=== PATIENT | female | born 1990 | race Caucasian/White ===

== ENCOUNTER 2024-03-09 18:22 | Inpatient (IN) | payer OTHER, SELFPAY ==
[2024-03-09 20:53] VITALS: BMI 23.3
[2024-03-09] MEDS: hydrOXYzine HCL 25 MG TABLET PO (21:31)
[2024-03-09] MEDS: Mirtazapine 15 MG TABLET PO (22:35)
[2024-03-09] MEDS: Acetaminophen 325 MG TABLET 650 MG PO (22:37)
--- NOTE | 2024-03-09 23:33 | PC.ADMIT ---
Addendum entered by Susan Reilly RN 03/10/24 05:32: Amended to add: patient tox screen was positive for Methadone, cocaine, fentanyl, marijuana and benzodiazepines. Original Note: 33 year old female with acute psychosis, comes to [facility] from [facility]. Patient has a history of poly HIRA, with an approximately 12 year dependance on IV heroin; she has been receiving methadone for same. Patient is alert and oriented to self. Patient is highly paranoid, requesting a chiropractic physician and questioning whether staff were working for the state. Patient is very demanding and impatient with staff, but does not raise voice or become physical, and is compliant with medication regimen.
[2024-03-09] MEDS: risperiDONE 0.5 MG TABLET PO (23:55)
[2024-03-10] VITALS: BP 142/86; PULSE 87; RESP 17; TEMP 37.6; O2SAT 98
[2024-03-10] MEDS: Nicotine Polacrilex 2 MG GUM 4 MG BUCCAL ×3 (00:26→10:41)
[2024-03-10 00:38] VITALS: BP 119/83
[2024-03-10] MEDS: cloNIDine HCL 0.1 MG TABLET PO ×2 (00:38→08:51)
[2024-03-10] MEDS: traZODone HCL 50 MG TABLET PO (01:00)
[2024-03-10 08:00] VITALS: BP 102/65; PULSE 97; RESP 18; TEMP 36.9; O2SAT 97
--- NOTE | 2024-03-10 08:29 | HE.PHANOTE ---
RE: methadone Received paperwork from [facility] with last dose of 90mg on 03/09/24 @[id number]
[2024-03-10] MEDS: methADONE HCl 20 MG/2 ML ORAL.CONC 90 MG PO (08:45)
[2024-03-10] MEDS: hydrOXYzine HCL 25 MG TABLET PO (08:49)
[2024-03-10] MEDS: Acetaminophen 325 MG TABLET 650 MG PO ×2 (08:49→21:40)
[2024-03-10 08:51] VITALS: BP 102/65
[2024-03-10] MEDS: risperiDONE 0.5 MG TABLET PO ×2 (08:51→22:54)
--- NOTE | 2024-03-10 10:30 | HO.PSYADMNOT ---
HPI Date of Service: 03/10/24 Chief Complaint: behaviroal Sources of Information: patient interviewed, chart reviewed and crisis/core team assessment reviewed (transfer from another hospital - cytogenetics laboratory manager oriana) HPI Subjective Notes: Conditional Voluntary Healthcare Proxy: No Guardianship: No Medical Problems Affecting Mental Status: No Narrative: 33yo WF presents for admission after reported decompensation was afraid she would kill herself if she kept using heroin- She is using heroin on top of methadone which she has been on for the past 1 year- Very vague about psychotic symptoms hearing and seeing things- doesn't know what else she took - was drinking and using crack- Says she has been trying to ween off heroin on her own and it isn't work - Crisis report said she showed up to police station confused and Patient is highly paranoid, requesting a refrigeration service technician and questioning whether staff were working for the state. This was on transfer to [facility] - she is now not psychotic appearing/denies si/hi/psychosis- Past Psychiatric History: hx prior admissions no hx of SA! Medical Evaluation Reviewed: Hospitalist Oriana Pending Pt co urinary sys and wants a chemistry intern check up [facility] Narrative: denies medical problems outside of possible chemistry intern/urinary Hep C - untreated NKDA Narrative: pt co high wbc/cr from prior hospital and would like to have check for PID and uti Family History: [place] Social History: using IV heroin and crack Substance History: hx of IV heroin for 12 years, now on methadone, also uses crack, utox pos for mj, joe and fentanyl had 6 month residential 2019 where she was put on vyvanse with good effect- unclear how long she was able to stay sober Trauma History: yes- pt reports this Diagnostics Vital Signs (24Hr): Vital Signs - 24 hr 03/10/24 00:00 03/10/24 00:38 03/10/24 08:51 Temperature 99.7 F Pulse Rate 87 Respiratory Rate 17 Blood Pressure 142/86 H 119/83 102/65 Pulse Oximetry 98 Oxygen Delivery Method Room Air BMI result Body Mass Index 23.3 Labs Labs: reviewed labs from [facility] WBC was only 5.14; creatinine was 0.9 well wnl , lfts and mg all wnl hcgnegative urine was positive for wbc and rbc trace bacteria- didn't look like a clean catch- EKG EKG: reviewed (NSR with sinus arrhythmia , qtc 454) Meds/Allergies Meds Home Medications ?Medication ?Instructions ?Recorded ?Confirmed ?Type alprazolam 1 mg tablet PO 2XD 03/09/24 History dextroamphetamine-amphetamine 30 1 tab PO BID 03/09/24 03/09/24 History mg tablet fluoxetine 20 mg capsule 20 mg PO DAILY 03/09/24 03/09/24 History mirtazapine 15 mg tablet 15 mg PO BEDTIME 03/09/24 03/09/24 History methadone 10 mg/mL oral 90 mg PO DAILY 03/10/24 03/10/24 History concentrate (Methadose) Narrative: Pt reports she is also on fluoxetine 10-20mg... I did confirm through UTILIZATION MANAGEMENT UM NURSE that she got 30 days of alprazolam 1mg bid 02/11 and same for adderall 30mg bid and has been getting these consistenlty from a provider in [facility] Allergies Allergies Allergy/AdvReac Type Severity Reaction Status Date / Time environmental allergies AdvReac Intermediate Cough Verified 03/09/24 20:58 Mental Status Exam Mental Status Exam Patient Appearance: Disheveled and Unkempt Patient Orientation: Person, Place, Time and Situation Level of Consciousness: Awake, Restless and Alert Patient Behavior: Appropriate and Cooperative Mood Description: Apprehensive Affect Description: Constricted Patient Cognition Impaired: No Ability to Follow Directions: Fair Speech Pattern: Clear Hallucinations: None (denies currently but admitted while on drugs had them) Delusions: Not Present Thought Process: Intact Thought Content: positive for Goal Oriented Depressive Symptoms: Significant Weight Loss (?) Abnormal Motor Activity Signs and Symptoms: Restlessness Judgement: Fair Assessment & Plan Assessment & Plan (1) Opiate abuse, continuous: Status: Acute Code(s): F11.10 - Opioid abuse, uncomplicated (2) Crack cocaine use: Status: Acute Code(s): F14.90 - Cocaine use, unspecified, uncomplicated Assessment and Plan: does not seem to be psychotic/paranoid today though focused on getting her adhd med stimulant- adderall or would prefer vyvanse holding these till Monday for decision given supposed psychosis yesterday (3) Alcohol abuse: Status: Acute Code(s): F10.10 - Alcohol abuse, uncomplicated Assessment and Plan: follow vitals - Plan unclear if any psychiatric disorder outside of substance use- though likely ptsd but not sure there is psychotic disorder other than what might get from intoxication with multiple drugs Best to be referred to longer term residential like she had in 2019 . Patient educated on: diagnosis and medication risk/benefits Informed Consent: further education needed Reason for continued inpatient stay Substantial Risk for: harm to self, inability to function and rapid decompensation Statement Statement: I have reviewed the history and physical and performed a pertinent examination on my patient. No changes have occurred unless specified. If the History and Physical was not performed prior to admission, the Hospitalist's service will be consulted for completing the admission physical. Time Spent With Patient Time: Total time managing care of this patient today ____ minutes.
[2024-03-10] MEDS: ALPRAZolam 0.5 MG TABLET 1 MG PO (10:53)
--- NOTE | 2024-03-10 13:41 | P.CONHOSP_ITS ---
History of Present Illness Data of Consult Service Date: 03/10/24 Requesting physician: Yifan Mullins Primary Care Provider: Unknown Physician HPI Reason for consult: medical h&P 33 year old female with history of OUD, alcohol use disorder, who is a current 2ppd smoker admitted for psychiatry from [facility] with consult placed to hospitalist service for medical H&P. Pt reports last IV heroin use was 2 days ago. Agreeable to HIV and hep b/c screening. Reports drinking 2nips to a gallon of alcohol daily. Last drink 2 days ago. Had been experiencing shakes, headaches, sweats but these have improved. No seizures. She takes alprazolam TID. No other complaints at this time except for feeling tired. Review of Systems Review of Systems: General: No fevers, malaise, unintentional weight loss HEENT: No blurred vision, diplopia. No sore throat, nasal congestion, rhinorrhea, sinus pain, ear pain Cardiovascular: No chest pain, palpitations, or leg edema Respiratory: No shortness of breath, wheezing, cough GI: No abdominal pain, nausea, vomiting, diarrhea, constipation, melena, hematochezia : No dysuria, hematuria, increased urinary frequency, decreased urinary output MSK: No myalgia, back pain Neuro: No headaches, weakness, paresthesias. +tremors Skin: No rashes or lesions PMFSH Medical History Alcohol abuse Crack cocaine use Intravenous drug abuse Alcohol use disorder Opiate abuse, continuous Social History Household Members: Significant Other and Unknown / Unable to assess Housing: Homeless Do you presently have visiting nurse or other home services: No Patient Tobacco Use Status: Current everyday Tobacco user Tobacco use type: Cigarette Cigarette Packs Per Day: 1 Cigarettes Per Day: 20.0 Smoked in Last 30 Days: Yes e-Cigarette/Vaping Use: Never Used Frequency of e-Cigarette/Vaping Use: Daily Patient Interested in Nicotine Replacement: Yes Patient Given Instructions on How to Stop Smoking: Yes Date Education Initiated: 03/09/24 Second Hand Smoke Exposure: Yes Use of substances other than those prescribed or required for medical reasons: Yes Substance Use Type: Crack/Cocaine, Marijuana and Other Substance Use Type Other:: Former IV heroin user; no manager intermediate period of sobriety Substance Use Frequency: Chronic Longstanding Last Used Substance: Unknown Last Used Substance Other:: Fentanyl Currently Displaying Signs/Symptoms of Drug Intoxication Withdrawal: No Any prior treatment program specific to substance use: Yes (Patient is currently under the care of a methadone clinic) Advance Directives: No Advance Directives Information Provided: No Do you have thoughts of harming others: None Do you have a plan to hurt others: No Plan Recently lost weight without trying: Unsure Nutrition Risks: No Nutritional Risk Patient : No : No Poor oral hygiene: No Meds Allergies Allergy/AdvReac Type Severity Reaction Status Date / Time environmental allergies AdvReac Intermediate Cough Verified 03/09/24 20:58 Active Medications: Current Medications Acetaminophen (Acetaminophen 325 Mg Tablet) 650 mg PO Q6H PRN PRN Reason: Headache/Pain Mild Scale (1-3) Last Admin: 03/10/24 08:49 Dose: 650 mg Al Hydroxide/Mg Hydroxide (Magnesium Hydrox/Alum Hydrox 30 Ml Oral.Susp) 30 ml PO Q6H PRN PRN Reason: Heartburn/Nausea Alprazolam (Alprazolam 0.5 Mg Tablet) 0.5 mg PO TID KENNETH Clonidine HCl (Clonidine Hcl 0.1 Mg Tablet) 0.1 mg PO TID PRN; Protocol PRN Reason: anxiety/restlessness Last Admin: 03/10/24 08:51 Dose: 0.1 mg Hydroxyzine HCl (Hydroxyzine Hcl 25 Mg Tablet) 25 mg PO Q6H PRN PRN Reason: Anxiety Last Admin: 03/10/24 08:49 Dose: 25 mg Magnesium Hydroxide (Milk Of Magnesia 30 Ml Oral.Susp) 30 ml PO DAILY PRN PRN Reason: Constipation Methadone HCl (Methadone Hcl 20 Mg/2 Ml Oral.Conc) 90 mg PO DAILY KENNETH Last Admin: 03/10/24 08:45 Dose: 90 mg Mirtazapine (Mirtazapine 15 Mg Tablet) 15 mg PO BEDTIME KENNETH Last Admin: 03/09/24 22:35 Dose: 15 mg Nicotine Polacrilex (Nicotine Polacrilex 2 Mg Gum) 4 mg BUCCAL Q2H KENNETH Last Admin: 03/10/24 10:41 Dose: 4 mg Risperidone (Risperidone 0.5 Mg Tablet) 0.5 mg PO Q4H PRN PRN Reason: Psychosis Last Admin: 03/10/24 08:51 Dose: 0.5 mg Trazodone HCl (Trazodone Hcl 50 Mg Tablet) 50 mg PO BEDTIME MRX1 PRN PRN Reason: Insomnia Last Admin: 03/10/24 01:00 Dose: 50 mg Home Medications ?Medication ?Instructions ?Recorded ?Confirmed ?Last Taken ?Type alprazolam 1 mg tablet PO 2XD 03/09/24 03/08/24 History dextroamphetamine-amphetamine 30 1 tab PO BID 03/09/24 03/09/24 03/08/24 History mg tablet fluoxetine 20 mg capsule 20 mg PO DAILY 03/09/24 03/09/24 03/08/24 History mirtazapine 15 mg tablet 15 mg PO BEDTIME 03/09/24 03/09/24 03/08/24 History methadone 10 mg/mL oral 90 mg PO DAILY 03/10/24 03/10/24 03/09/24 10:46 History concentrate (Methadose) Physical Exam Vital Signs and Narrative: Vital Signs: Last Vital Signs Temp 98.4 F 03/10/24 08:00 Pulse 97 03/10/24 08:00 Resp 18 03/10/24 08:00 BP 102/65 03/10/24 08:51 Pulse Ox 97 03/10/24 08:00 O2 Del Method Room Air 03/10/24 08:00 BMI result Body Mass Index 23.3 Constitutional - Awake and Alert, No apparent distress Eyes - PERRLA, EOMI Cardiovascular - S1S2, RRR, No edema Respiratory - Normal lung expansion, Normal respiratory effort, No respiratory distress, CTA bilaterally Gastrointestinal - NT / ND; +BS; No rebound or guarding Extremities - no calf tenderness bilaterally, no swelling Musculoskeletal - Normal inspection, normal ROM Skin - Warm/Dry Neurological - Alert & oriented x3, CN II-XII in tact, 5/5 strength BUE and BLE Psychological - Appropriate affect Assessment and Plan (1) Routine medical exam: Status: Acute Plan 33 year old female with history of OUD, alcohol use disorder, who is a current 2ppd smoker admitted for psychiatry from [facility] with consult placed to hospitalist service for medical H&P. #Mood disorder -plan per psychiatry #Polysubstance abuse with recent history of IVDA -continue methadone, plan per psychitary -pt agreeable to hep b/c and HIV testing. If hep c ab positive, can check hep c viral load with outpt follow up for treatment. Hep c tx not initiated inpt #Alcohol use disorder- at risk for withdrawal -drinks 2 nips to 2 gallons etoh daily, last drink 2 days ago -experiencing mild withdrawal. Recommend monitoring on ciwa. Plan per psychiatry #Nicotine dependence -cessation counseling -patch/gum for nrt Thank you for allowing me to participate in this consult. Signing off at this time. Please do not hesitate to call for further questions or for any acute medical issues.
[2024-03-10 20:00] VITALS: TEMP 36.6
[2024-03-10] MEDS: Nicotine Polacrilex 2 MG GUM BUCCAL ×2 (21:39→22:54)
[2024-03-10] MEDS: ALPRAZolam 0.5 MG TABLET PO (21:39)
[2024-03-10] MEDS: Mirtazapine 15 MG TABLET PO (22:10)
[2024-03-11 08:00] VITALS: BP 92/53; PULSE 73; RESP 18; TEMP 36.6; O2SAT 99
[2024-03-11] MEDS: Nicotine 21 MG PATCH.TD24 TRANSDERMA (08:17)
[2024-03-11] MEDS: methADONE HCl 20 MG/2 ML ORAL.CONC 90 MG PO (08:18)
[2024-03-11] MEDS: ALPRAZolam 0.5 MG TABLET PO ×3 (08:18→20:14)
[2024-03-11] MEDS: Acetaminophen 325 MG TABLET 650 MG PO ×2 (08:21→21:26)
[2024-03-11] MEDS: Nicotine Polacrilex 2 MG GUM BUCCAL (08:22)
[2024-03-11 09:15] LABS: HBS Num1 8.18 mIU/mL (0-7.99); HBc Num1 0.16 S/CO (0.00-0.79); HBsAGNum1 0.21 S/CO (0.00-0.99); HIV AB/AG Nonreactive (Nonreactive); HIV Num 1 0.05 S/CO (0.00-0.99); Hepatitis B Core Antibody Nonreactive (Nonreactive); Hepatitis B Surface Antigen Negative (Negative); ~HepC Num1 16.05 S/CO (0.00-0.79); ~Hepatitis C Antibody Reactive (Nonreactive)
--- NOTE | 2024-03-11 10:18 | HO.PSYCHPN ---
Subjective Subjective Date of Service: 03/11/24 Reason For Visit: behaviroal Subjective Notes: Conditional Voluntary Healthcare Proxy: No Guardianship: No Medical Problems Affecting Mental Status: No Interim History: Pt approached tw to meet immediately upon arrival this a.m. Several thoughtful questions delivered with urgency, pressure, ?ADHD, ?Beatriz? Substance induced mood sx. Concern about UTI, BV, needing NETEZZA ARCHITECT- will repeat urine culture. NETEZZA ARCHITECT will need to be OP. Medications- asks about flonase, Adderall or Vyvanse restart. PHYSICAL THERAPY PROFESSOR check- will re-start- no psychosis exhibited. Requested addiction consultation- I need their opinion about what I should do next.? Asks for treatment of Hep C. Asks to begin immediately. Discussed need for OP GI evaluation. Medication Compliance: Yes Side effects from medications: No Attending Groups: Intermittent Review of Systems Acute medical concerns: No Medical Review of Systems: unchanged Review of Systems Review of Systems Yes all other systems are reviewed and are negative Mental Status Exam Mental Status Exam Patient Appearance: Appropriate Patient Orientation: Person, Place, Time and Situation Level of Consciousness: Alert Patient Behavior: Talkative and Good Eye Contact Mood Description: Apprehensive Affect Description: Apprehensive Patient Cognition Impaired: No Ability to Follow Directions: Good Speech Pattern: Spontaneous Speech Memory Description: Intact Hallucinations: None Delusions: Not Present Thought Process: Racing Thought Content: positive for Racing and positive for Circumstantial Depressive Symptoms: Increased Anxiety Abnormal Motor Activity Signs and Symptoms: Restlessness Judgement: Fair Diagnostics Vital Signs (24Hr): Vital Signs - 24 hr 03/10/24 20:00 03/11/24 08:00 Temperature 98 F 97.9 F Pulse Rate 73 Respiratory Rate 18 Blood Pressure 92/53 L Pulse Oximetry 99 Oxygen Delivery Method Room Air BMI result Body Mass Index 23.3 Labs Labs: Laboratory Results - last 48 hr 03/11/24 07:58 Hep Bs Antigen Negative Hep B Core Total Ab Nonreactive Hepatitis C Ab (EIA) Reactive H HIV 1&2 Ab/P24 Ag 4thGn Nonreactive Medications Medications Current Medications Acetaminophen (Acetaminophen 325 Mg Tablet) 650 mg PO Q6H PRN PRN Reason: Headache/Pain Mild Scale (1-3) Last Admin: 03/11/24 08:21 Dose: 650 mg Al Hydroxide/Mg Hydroxide (Magnesium Hydrox/Alum Hydrox 30 Ml Oral.Susp) 30 ml PO Q6H PRN PRN Reason: Heartburn/Nausea Albuterol Sulfate (Albuterol Sulfate 90 Mcg 8 Gm Inhaler) 2 puff INHALE RQ4H PRN PRN Reason: wheeze Alprazolam (Alprazolam 0.5 Mg Tablet) 0.5 mg PO TID [facility] Last Admin: 03/11/24 08:18 Dose: 0.5 mg Amphetamine/Dextroamphetamine (Dextroamphetamine/Amphetamine Xr 10 Mg Cap.Er.24h) 30 mg PO DAILY [facility] Amphetamine/Dextroamphetamine (Amphetamine Mixed Salts 20 Mg Tablet) 30 mg PO 1400 [facility] Clonidine HCl (Clonidine Hcl 0.1 Mg Tablet) 0.1 mg PO TID PRN; Protocol PRN Reason: anxiety/restlessness Last Admin: 03/10/24 08:51 Dose: 0.1 mg Fluticasone Propionate (Fluticasone Propionate Nasal 16 Gm [place]) 1 spray NOSTRIL-B BID PRN PRN Reason: wheezing Hydroxyzine HCl (Hydroxyzine Hcl 25 Mg Tablet) 25 mg PO Q6H PRN PRN Reason: Anxiety Last Admin: 03/10/24 08:49 Dose: 25 mg Magnesium Hydroxide (Milk Of Magnesia 30 Ml Oral.Susp) 30 ml PO DAILY PRN PRN Reason: Constipation Methadone HCl (Methadone Hcl 20 Mg/2 Ml Oral.Conc) 90 mg PO DAILY [facility] Last Admin: 03/11/24 08:18 Dose: 90 mg Mirtazapine (Mirtazapine 15 Mg Tablet) 15 mg PO BEDTIME [facility] Last Admin: 03/10/24 22:10 Dose: 15 mg Nicotine (Nicotine 21 Mg Patch.Td24) 21 mg TRANSDERMA DAILY [facility] Last Admin: 03/11/24 08:17 Dose: 21 mg Nicotine Polacrilex (Nicotine Polacrilex 2 Mg Gum) 2 mg BUCCAL Q1H PRN PRN Reason: Nicotine Cravings Last Admin: 03/11/24 08:22 Dose: 2 mg Risperidone (Risperidone 0.5 Mg Tablet) 0.5 mg PO Q4H PRN PRN Reason: Psychosis Last Admin: 03/10/24 22:54 Dose: 0.5 mg Trazodone HCl (Trazodone Hcl 50 Mg Tablet) 50 mg PO BEDTIME MRX1 PRN PRN Reason: Insomnia Last Admin: 03/10/24 01:00 Dose: 50 mg Allergies Allergies Allergy/AdvReac Type Severity Reaction Status Date / Time environmental allergies AdvReac Intermediate Cough Verified 03/09/24 20:58 Assessment & Plan Assessment & Plan (1) Mood disorder: Status: Acute Code(s): F39 - Unspecified mood [affective] disorder Assessment and Plan: Continue Risperdal. (2) ADHD: Status: Acute Code(s): F90.9 - Attention-deficit hyperactivity disorder, unspecified type Assessment and Plan: 03/11/24- Trial of re-starting Adderall XR 30 mg a.m. 30 mg IR 1400. (3) Alcohol abuse: Status: Acute Code(s): F10.10 - Alcohol abuse, uncomplicated Assessment and Plan: 03/11/24: Continue ciwa Addiction consultation. (4) Crack cocaine use: Status: Acute Code(s): F14.90 - Cocaine use, unspecified, uncomplicated (5) Opiate abuse, continuous: Status: Acute Code(s): F11.10 - Opioid abuse, uncomplicated Plan 33 year old female with history of OUD, alcohol use disorder, who is a current 2ppd smoker admitted for psychiatry from [facility] with consult placed to hospitalist service for medical H&P. #Mood disorder -plan per psychiatry #Polysubstance abuse with recent history of IVDA -continue methadone, plan per psychitary -pt agreeable to hep b/c and HIV testing. If hep c ab positive, can check hep c viral load with outpt follow up for treatment. Hep c tx not initiated inpt #Alcohol use disorder- at risk for withdrawal -drinks 2 nips to 2 gallons etoh daily, last drink 2 days ago -experiencing mild withdrawal. Recommend monitoring on ciwa. Plan per psychiatry #Nicotine dependence -cessation counseling -patch/gum for nrt Thank you for allowing me to participate in this consult. Signing off at this time. Please do not hesitate to call for further questions or for any acute medical issues. 03/11/24: Re-start Flonase per pt request Hepatitis C Viral load for 03/12/24. Patient educated on: diagnosis, medication risk/benefits, substance abuse, therapeutic strategies and medical condition Informed Consent: understands and further education needed Reason for continued inpatient stay Substantial Risk for: rapid decompensation and med/psych decompensation Time Spent With Patient Time: Total time managing care of this patient today ____ minutes.
[2024-03-11 10:26] LABS: HBS Num2 8.39 mIU/mL (0-7.99); HBS Num3 8.14 mIU/mL (0-7.99); ~Hepatitis B Surface Antibody GRAYZONE (Nonreactive)
[2024-03-11] MEDS: Albuterol Sulfate 90 MCG 8 GM INHALER 2 PUFF INHALE (10:35)
[2024-03-11] MEDS: Fluticasone Propionate Nasal 16 GM SPRAY 1 SPRAY NOSTRIL-B (10:35)
[2024-03-11] MEDS: Nicotine Polacrilex 2 MG GUM 4 MG BUCCAL ×3 (11:21→20:16)
[2024-03-11] MEDS: hydrOXYzine HCL 25 MG TABLET PO (11:21)
[2024-03-11] MEDS: Amphetamine Mixed Salts 20 MG TABLET 30 MG PO (13:10)
--- NOTE | 2024-03-11 15:06 | MHC.RECOVRN ---
Met with pt on M5 after pt expressed interest in transitioning from methadone to Suboxone. Pt awake, alert, easily engages in conversation. Pt reports she is currently on methadone, 90 mg daily, through [facility] in [place]. Pt reports she has never had time in recovery while on methadone, has had time in recovery, approx 2 years, with Suboxone. Pt reports prior to admission she was using heroin/fentanyl, 1 bundle daily, IV, as well as cocaine, INH, 1 gram daily. Pt reports she had been hallucinating from using cocaine which led to admission here. Pt reports she was last in treatment 2.5 years ago, had gone to [facility] for ATS. Pt reports she is ready to be done with substances and feels like something clicked. Pt reports her parents and brother have , however, she has a supportive boyfriend. Pt would like to continue with treatment after discharge from [facility], preferably [facility]. Educated pt on transition from methadone to Suboxone, pt would like to move forward if possible. Pt denies questions or concerns for t/w. Discussed with Romi Martins APRN.
[2024-03-11 18:37] VITALS: BP 113/74
[2024-03-11] MEDS: cloNIDine HCL 0.1 MG TABLET PO (18:37)
[2024-03-11] MEDS: traZODone HCL 50 MG TABLET PO (20:13)
[2024-03-11] MEDS: Mirtazapine 15 MG TABLET PO (20:13)
[2024-03-11] MEDS: risperiDONE 0.5 MG TABLET PO (21:26)
[2024-03-11] MEDS: LORazepam 1 MG TABLET PO (21:26)
[2024-03-12 09:10] VITALS: BP 112/65; PULSE 99; RESP 16; TEMP 36.5; O2SAT 99
[2024-03-12] MEDS: methADONE HCl 20 MG/2 ML ORAL.CONC 90 MG PO (09:11)
[2024-03-12] MEDS: Nicotine 21 MG PATCH.TD24 TRANSDERMA (09:12)
[2024-03-12] MEDS: Dextroamphetamine/Amphetamine XR 10 MG CAP.ER.24H 30 MG PO (09:13)
[2024-03-12] MEDS: ALPRAZolam 0.5 MG TABLET PO ×3 (09:13→20:22)
[2024-03-12] MEDS: Nicotine Polacrilex 2 MG GUM 4 MG BUCCAL ×5 (09:16→20:28)
[2024-03-12] MEDS: risperiDONE 0.5 MG TABLET PO ×3 (09:16→21:50)
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
[2024-03-12] MEDS: Acetaminophen 325 MG TABLET 650 MG PO ×2 (12:06→20:22)
[2024-03-12] MEDS: Fluticasone Propionate Nasal 16 GM SPRAY 1 SPRAY NOSTRIL-B (12:06)
--- NOTE | 2024-03-12 12:57 | PC.NURSE ---
PT RETRACTED 3 DAY NOTICE ON 03/12.
[2024-03-12] MEDS: Amphetamine Mixed Salts 20 MG TABLET 30 MG PO (13:01)
--- NOTE | 2024-03-12 14:13 | P.EN_ITS ---
Event Note Date of Service: 03/12/24 Event Note: Addiction consult requested as patient interested in transitioning from methadone to buprenorphine Seen by rubber compounder--notes reviewed Psychiatry notes reviewed as well At this time, it does not seem appropriate to transition patient as she is still working on mood stabilization This is also something that should include her outpatient MAT team Recommendation: -increase methadone by 5mg to address cravings -encourage patient to discuss transition with her outpatient MAT team Time Spent With Patient Time: Total time managing care of this patient today ____ minutes.
[2024-03-12] MEDS: Baclofen 10 MG TABLET PO (15:51)
[2024-03-12] MEDS: Gabapentin 300 MG CAPSULE PO ×2 (17:30→20:22)
[2024-03-12] MEDS: LORazepam 1 MG TABLET PO (18:13)
[2024-03-12] MEDS: Mirtazapine 15 MG TABLET PO (20:23)
[2024-03-12] MEDS: hydrOXYzine HCL 25 MG TABLET PO (21:51)
[2024-03-13 08:55] VITALS: BP 120/66; PULSE 78; RESP 18; TEMP 36.4; O2SAT 99
[2024-03-13] MEDS: Gabapentin 300 MG CAPSULE PO ×3 (09:01→20:26)
[2024-03-13] MEDS: Dextroamphetamine/Amphetamine XR 10 MG CAP.ER.24H 30 MG PO (09:01)
[2024-03-13] MEDS: ALPRAZolam 0.5 MG TABLET PO ×3 (09:01→20:26)
[2024-03-13] MEDS: methADONE HCl 20 MG/2 ML ORAL.CONC 90 MG PO (09:02)
[2024-03-13] MEDS: Nicotine 21 MG PATCH.TD24 TRANSDERMA (09:05)
[2024-03-13] MEDS: Acetaminophen 325 MG TABLET 650 MG PO ×2 (09:08→20:25)
[2024-03-13] MEDS: risperiDONE 0.5 MG TABLET PO ×2 (09:08→16:09)
[2024-03-13] MEDS: Nicotine Polacrilex 2 MG GUM 4 MG BUCCAL ×5 (09:09→22:53)
[2024-03-13] MEDS: Fluticasone Propionate Nasal 16 GM SPRAY 1 SPRAY NOSTRIL-B ×2 (09:47→20:29)
[2024-03-13] MEDS: Albuterol Sulfate 90 MCG 8 GM INHALER 2 PUFF INHALE ×2 (09:48→20:28)
[2024-03-13] MEDS: Milk of Magnesia 30 ML ORAL.SUSP PO (11:52)
--- NOTE | 2024-03-13 11:54 | HO.PSYCHPN ---
Subjective Subjective Date of Service: 03/13/24 Reason For Visit: behaviroal Subjective Notes: Conditional Voluntary and 3 Day Healthcare Proxy: No Guardianship: No Medical Problems Affecting Mental Status: No Interim History: Pt believes she will discharge to home when her three day notice expires. She expressed a decrease interest in [facility] although we discussed some of the benefits of attending a program with a recovery focus. Discussed need for referrals for a new PCP, [facility]. Discussed that she may have a PCP in place via insurance yet may not be aware of it. Will ask UR team to check on this for her. Med review completed. Pt currently finding regime useful, tolerated. Medication Compliance: Yes Side effects from medications: No Attending Groups: Yes Review of Systems Acute medical concerns: No Medical Review of Systems: unchanged Review of Systems Review of Systems Yes all other systems are reviewed and are negative Mental Status Exam Mental Status Exam Patient Appearance: Appropriate Patient Orientation: Person, Place, Time and Situation Level of Consciousness: Alert Patient Behavior: Appropriate, Talkative, Cooperative and Good Eye Contact Mood Description: Appropriate and Expansive Affect Description: Appropriate Patient Cognition Impaired: No Ability to Follow Directions: Good Speech Pattern: Spontaneous Speech Memory Description: Intact Hallucinations: None Delusions: Not Present Thought Process: Goal Oriented Thought Content: positive for Goal Oriented Abnormal Motor Activity Signs and Symptoms: Restlessness Judgement: Good Diagnostics Vital Signs (24Hr): Vital Signs - 24 hr 03/13/24 08:55 Temperature 97.5 F Pulse Rate 78 Respiratory Rate 18 Blood Pressure 120/66 Pulse Oximetry 99 Oxygen Delivery Method Room Air BMI result Body Mass Index 23.3 Medications Medications Current Medications Acetaminophen (Acetaminophen 325 Mg Tablet) 650 mg PO Q6H PRN PRN Reason: Headache/Pain Mild Scale (1-3) Last Admin: 03/13/24 09:08 Dose: 650 mg Al Hydroxide/Mg Hydroxide (Magnesium Hydrox/Alum Hydrox 30 Ml Oral.Susp) 30 ml PO Q6H PRN PRN Reason: Heartburn/Nausea Albuterol Sulfate (Albuterol Sulfate 90 Mcg 8 Gm Inhaler) 2 puff INHALE RQ4H PRN PRN Reason: wheeze Last Admin: 03/13/24 09:48 Dose: 2 puff Alprazolam (Alprazolam 0.5 Mg Tablet) 0.5 mg PO TID [facility] Last Admin: 03/13/24 09:01 Dose: 0.5 mg Amphetamine/Dextroamphetamine (Dextroamphetamine/Amphetamine Xr 10 Mg Cap.Er.24h) 30 mg PO DAILY [facility] Last Admin: 03/13/24 09:01 Dose: 30 mg Amphetamine/Dextroamphetamine (Amphetamine Mixed Salts 20 Mg Tablet) 30 mg PO 1400 [facility] Last Admin: 03/12/24 13:01 Dose: 30 mg Baclofen (Baclofen 10 Mg Tablet) 10 mg PO BID PRN PRN Reason: withdrawal Last Admin: 03/12/24 15:51 Dose: 10 mg Clonidine HCl (Clonidine Hcl 0.1 Mg Tablet) 0.1 mg PO TID PRN; Protocol PRN Reason: anxiety/restlessness Last Admin: 03/11/24 18:37 Dose: 0.1 mg Fluticasone Propionate (Fluticasone Propionate Nasal 16 Gm [place]) 1 spray NOSTRIL-B BID PRN PRN Reason: wheezing Last Admin: 03/13/24 09:47 Dose: 1 spray Gabapentin (Gabapentin 300 Mg Capsule) 300 mg PO TID [facility] Last Admin: 03/13/24 09:01 Dose: 300 mg Hydroxyzine HCl (Hydroxyzine Hcl 25 Mg Tablet) 25 mg PO Q6H PRN PRN Reason: Anxiety Last Admin: 03/12/24 21:51 Dose: 25 mg Magnesium Hydroxide (Milk Of Magnesia 30 Ml Oral.Susp) 30 ml PO DAILY PRN PRN Reason: Constipation Methadone HCl (Methadone Hcl 20 Mg/2 Ml Oral.Conc) 90 mg PO DAILY [facility] Last Admin: 03/13/24 09:02 Dose: 90 mg Mirtazapine (Mirtazapine 15 Mg Tablet) 15 mg PO BEDTIME [facility] Last Admin: 03/12/24 20:23 Dose: 15 mg Nicotine (Nicotine 21 Mg Patch.Td24) 21 mg TRANSDERMA DAILY [facility] Last Admin: 03/13/24 09:05 Dose: 21 mg Nicotine Polacrilex (Nicotine Polacrilex 2 Mg Gum) 4 mg BUCCAL Q2H PRN PRN Reason: Nicotine Cravings Last Admin: 03/13/24 09:09 Dose: 4 mg Risperidone (Risperidone 0.5 Mg Tablet) 0.5 mg PO Q4H PRN PRN Reason: Psychosis Last Admin: 03/13/24 09:08 Dose: 0.5 mg Trazodone HCl (Trazodone Hcl 50 Mg Tablet) 50 mg PO BEDTIME MRX1 PRN PRN Reason: Insomnia Last Admin: 03/11/24 20:13 Dose: 50 mg Allergies Allergies Allergy/AdvReac Type Severity Reaction Status Date / Time environmental allergies AdvReac Intermediate Cough Verified 03/09/24 20:58 Assessment & Plan Assessment & Plan (1) Mood disorder: Status: Acute Code(s): F39 - Unspecified mood [affective] disorder Assessment and Plan: Continue Risperdal. (2) ADHD: Status: Acute Code(s): F90.9 - Attention-deficit hyperactivity disorder, unspecified type Assessment and Plan: 03/11/24- Trial of re-starting Adderall XR 30 mg a.m. 30 mg IR 1400. (3) Alcohol abuse: Status: Acute Code(s): F10.10 - Alcohol abuse, uncomplicated Assessment and Plan: 03/11/24: Continue ciwa Addiction consultation. (4) Crack cocaine use: Status: Acute Code(s): F14.90 - Cocaine use, unspecified, uncomplicated (5) Opiate abuse, continuous: Status: Acute Code(s): F11.10 - Opioid abuse, uncomplicated Plan 33 year old female with history of OUD, alcohol use disorder, who is a current 2ppd smoker admitted for psychiatry from [facility] with consult placed to hospitalist service for medical H&P. #Mood disorder -plan per psychiatry #Polysubstance abuse with recent history of IVDA -continue methadone, plan per psychitary -pt agreeable to hep b/c and HIV testing. If hep c ab positive, can check hep c viral load with outpt follow up for treatment. Hep c tx not initiated inpt #Alcohol use disorder- at risk for withdrawal -drinks 2 nips to 2 gallons etoh daily, last drink 2 days ago -experiencing mild withdrawal. Recommend monitoring on ciwa. Plan per psychiatry #Nicotine dependence -cessation counseling -patch/gum for nrt Thank you for allowing me to participate in this consult. Signing off at this time. Please do not hesitate to call for further questions or for any acute medical issues. 03/11/24: Re-start Flonase per pt request Hepatitis C Viral load for 03/12/24. : Gabapentin 300 mg tid Baclofen 10 mg bid prn withdrawal sx. 03/13/24: Continue current regime/plan. Three day notice to 03/15. Patient educated on: medication risk/benefits and therapeutic strategies Reason for continued inpatient stay Substantial Risk for: rapid decompensation Time Spent With Patient Time: Total time managing care of this patient today ____ minutes.
[2024-03-13] MEDS: Amphetamine Mixed Salts 20 MG TABLET 30 MG PO (13:00)
[2024-03-13 20:00] VITALS: BP 110/70; PULSE 106; RESP 18; TEMP 36.6; O2SAT 98
[2024-03-13] MEDS: hydrOXYzine HCL 25 MG TABLET PO (20:26)
[2024-03-13] MEDS: Mirtazapine 15 MG TABLET PO (20:26)
[2024-03-13] MEDS: Baclofen 10 MG TABLET PO (20:26)
[2024-03-13 22:51] VITALS: BP 113/78
[2024-03-13] MEDS: cloNIDine HCL 0.1 MG TABLET PO (22:51)
[2024-03-13] MEDS: traZODone HCL 50 MG TABLET PO (22:51)
[2024-03-14 07:00] VITALS: BMI 24.1
[2024-03-14] MEDS: Nicotine 21 MG PATCH.TD24 TRANSDERMA (08:22)
[2024-03-14 08:35] VITALS: BP 100/62; PULSE 105; RESP 17; TEMP 36.6; O2SAT 98
[2024-03-14] MEDS: Dextroamphetamine/Amphetamine XR 10 MG CAP.ER.24H 30 MG PO (09:19)
[2024-03-14] MEDS: ALPRAZolam 0.5 MG TABLET PO ×3 (09:19→20:18)
[2024-03-14] MEDS: methADONE HCl 20 MG/2 ML ORAL.CONC 90 MG PO (09:20)
[2024-03-14] MEDS: Gabapentin 300 MG CAPSULE PO ×3 (09:20→20:18)
[2024-03-14] MEDS: Milk of Magnesia 30 ML ORAL.SUSP PO (09:24)
[2024-03-14] MEDS: Fluticasone Propionate Nasal 16 GM SPRAY 1 SPRAY NOSTRIL-B (09:24)
--- NOTE | 2024-03-14 11:56 | P.PNPSI_ITS ---
Subjective Subjective Date of Service: 03/14/24 Reason For Visit: behavioral Subjective Notes: Conditional Voluntary and 3 Day Healthcare Proxy: No Guardianship: No Medical Problems Affecting Mental Status: No Interim History: Three day notice to 03/15. Pt prepared for discharge, however with several repetitive questions throughout the day. Asked pt to take some quiet time, organize her thoughts, questions and we would meet at the end of the day to review. She was able to do this, wrote specific notes and questions, all appropriate to her care and discharge and was organized in presentation. Call to [facility] care to discuss with OP team, no return call [phone]. Urine culture returned + Gram Negative bacteria. Bactrim DS initiated per recommendation of [facility]. Dulcolax ordered for constipation. Met with pt and Michelle Schmitt [facility]-meds, aftercare plans reviewed and discussed. Medication Compliance: Yes Side effects from medications: No Attending Groups: Yes Review of Systems Acute medical concerns: No Medical Review of Systems: unchanged Review of Systems Review of Systems UTI- Bactrim initiated. Mental Status Exam Mental Status Exam Patient Appearance: Appropriate Patient Orientation: Person, Place, Time and Situation Level of Consciousness: Alert Patient Behavior: Appropriate, Talkative, Cooperative and Good Eye Contact Mood Description: Appropriate and Expansive Affect Description: Appropriate Patient Cognition Impaired: No Ability to Follow Directions: Good Speech Pattern: Spontaneous Speech Memory Description: Intact Hallucinations: None Delusions: Not Present Thought Process: Goal Oriented Thought Content: positive for Goal Oriented Abnormal Motor Activity Signs and Symptoms: Restlessness Judgement: Good Diagnostics Vital Signs (24Hr): Vital Signs - 24 hr 03/13/24 20:00 03/13/24 22:51 03/14/24 08:35 Temperature 97.9 F 97.9 F Pulse Rate 106 H 105 H Respiratory Rate 18 17 Blood Pressure 110/70 113/78 100/62 Pulse Oximetry 98 98 Oxygen Delivery Method Room Air Room Air BMI result Body Mass Index 24.1 Medications Medications Current Medications Acetaminophen (Acetaminophen 325 Mg Tablet) 650 mg PO Q6H PRN PRN Reason: Headache/Pain Mild Scale (1-3) Last Admin: 03/13/24 20:25 Dose: 650 mg Al Hydroxide/Mg Hydroxide (Magnesium Hydrox/Alum Hydrox 30 Ml Oral.Susp) 30 ml PO Q6H PRN PRN Reason: Heartburn/Nausea Albuterol Sulfate (Albuterol Sulfate 90 Mcg 8 Gm Inhaler) 2 puff INHALE RQ4H PRN PRN Reason: wheeze Last Admin: 03/13/24 20:28 Dose: 2 puff Alprazolam (Alprazolam 0.5 Mg Tablet) 0.5 mg PO TID [facility] Last Admin: 03/14/24 09:19 Dose: 0.5 mg Amphetamine/Dextroamphetamine (Dextroamphetamine/Amphetamine Xr 10 Mg Cap.Er.24h) 30 mg PO DAILY [facility] Last Admin: 03/14/24 09:19 Dose: 30 mg Amphetamine/Dextroamphetamine (Amphetamine Mixed Salts 20 Mg Tablet) 30 mg PO 1400 [facility] Last Admin: 03/13/24 13:00 Dose: 30 mg Baclofen (Baclofen 10 Mg Tablet) 10 mg PO BID PRN PRN Reason: withdrawal Last Admin: 03/13/24 20:26 Dose: 10 mg Clonidine HCl (Clonidine Hcl 0.1 Mg Tablet) 0.1 mg PO TID PRN; Protocol PRN Reason: anxiety/restlessness Last Admin: 03/13/24 22:51 Dose: 0.1 mg Fluticasone Propionate (Fluticasone Propionate Nasal 16 Gm [place]) 1 spray NOSTRIL-B BID PRN PRN Reason: wheezing Last Admin: 03/14/24 09:24 Dose: 1 spray Gabapentin (Gabapentin 300 Mg Capsule) 300 mg PO TID [facility] Last Admin: 03/14/24 09:20 Dose: 300 mg Hydroxyzine HCl (Hydroxyzine Hcl 25 Mg Tablet) 25 mg PO Q6H PRN PRN Reason: Anxiety Last Admin: 03/13/24 20:26 Dose: 25 mg Magnesium Hydroxide (Milk Of Magnesia 30 Ml Oral.Susp) 30 ml PO DAILY PRN PRN Reason: Constipation Last Admin: 03/14/24 09:24 Dose: 30 ml Methadone HCl (Methadone Hcl 20 Mg/2 Ml Oral.Conc) 90 mg PO DAILY [facility] Last Admin: 03/14/24 09:20 Dose: 90 mg Mirtazapine (Mirtazapine 15 Mg Tablet) 15 mg PO BEDTIME [facility] Last Admin: 03/13/24 20:26 Dose: 15 mg Nicotine (Nicotine 21 Mg Patch.Td24) 21 mg TRANSDERMA DAILY [facility] Last Admin: 03/14/24 08:22 Dose: 21 mg Nicotine Polacrilex (Nicotine Polacrilex 2 Mg Gum) 4 mg BUCCAL Q2H PRN PRN Reason: Nicotine Cravings Last Admin: 03/13/24 22:53 Dose: 4 mg Risperidone (Risperidone 0.5 Mg Tablet) 0.5 mg PO Q4H PRN PRN Reason: Psychosis Last Admin: 03/13/24 16:09 Dose: 0.5 mg Trazodone HCl (Trazodone Hcl 50 Mg Tablet) 50 mg PO BEDTIME MRX1 PRN PRN Reason: Insomnia Last Admin: 03/13/24 22:51 Dose: 50 mg Allergies Allergies Allergy/AdvReac Type Severity Reaction Status Date / Time environmental allergies AdvReac Intermediate Cough Verified 03/09/24 20:58 Assessment & Plan Assessment & Plan (1) Mood disorder: Status: Acute Code(s): F39 - Unspecified mood [affective] disorder Assessment and Plan: Continue Risperdal. (2) ADHD: Status: Acute Code(s): F90.9 - Attention-deficit hyperactivity disorder, unspecified type Assessment and Plan: 03/11/24- Trial of re-starting Adderall XR 30 mg a.m. 30 mg IR 1400. (3) Alcohol abuse: Status: Acute Code(s): F10.10 - Alcohol abuse, uncomplicated Assessment and Plan: 03/11/24: Continue ciwa Addiction consultation. (4) Crack cocaine use: Status: Acute Code(s): F14.90 - Cocaine use, unspecified, uncomplicated (5) Opiate abuse, continuous: Status: Acute Code(s): F11.10 - Opioid abuse, uncomplicated Plan 33 year old female with history of OUD, alcohol use disorder, who is a current 2ppd smoker admitted for psychiatry from [facility] with consult placed to hospitalist service for medical H&P. #Mood disorder -plan per psychiatry #Polysubstance abuse with recent history of IVDA -continue methadone, plan per psychitary -pt agreeable to hep b/c and HIV testing. If hep c ab positive, can check hep c viral load with outpt follow up for treatment. Hep c tx not initiated inpt #Alcohol use disorder- at risk for withdrawal -drinks 2 nips to 2 gallons etoh daily, last drink 2 days ago -experiencing mild withdrawal. Recommend monitoring on ciwa. Plan per psychiatry #Nicotine dependence -cessation counseling -patch/gum for nrt Thank you for allowing me to participate in this consult. Signing off at this time. Please do not hesitate to call for further questions or for any acute medical issues. 03/11/24: Re-start Flonase per pt request Hepatitis C Viral load for 03/12/24. : Gabapentin 300 mg tid Baclofen 10 mg bid prn withdrawal sx. 03/13/24: Continue current regime/plan. Three day notice to 03/15. 03/14/24: Discharge 03/15/24 on TDN Continue with PCP, OP Team Informed Consent: understands Reason for continued inpatient stay Substantial Risk for: stable for discharge Time Spent With Patient Time: Total time managing care of this patient today ____ minutes.
[2024-03-14] MEDS: Acetaminophen 325 MG TABLET 650 MG PO (14:41)
[2024-03-14] MEDS: risperiDONE 0.5 MG TABLET PO ×2 (14:41→20:20)
[2024-03-14] MEDS: Amphetamine Mixed Salts 20 MG TABLET 30 MG PO (14:42)
[2024-03-14] MEDS: Nicotine Polacrilex 2 MG GUM 4 MG BUCCAL ×2 (14:43→20:21)
[2024-03-14] MEDS: bisacodyL 5 MG TABLET.DR 10 MG PO (16:08)
[2024-03-14] MEDS: Sulfamethox/Trimeth 800/160 TABLET 1 TAB PO (16:47)
[2024-03-14 20:00] VITALS: BP 102/55; PULSE 97; RESP 17; TEMP 36.9; O2SAT 98
[2024-03-14] MEDS: Mirtazapine 15 MG TABLET PO (20:18)
[2024-03-14] MEDS: traZODone HCL 50 MG TABLET PO (20:18)
[2024-03-14] MEDS: cloNIDine HCL 0.1 MG TABLET PO (20:20)
[2024-03-15] MEDS: Sulfamethox/Trimeth 800/160 TABLET 1 TAB PO (03:25)
[2024-03-15] MEDS: cloNIDine HCL 0.1 MG TABLET PO (03:25)
[2024-03-15 08:00] VITALS: BP 111/67; PULSE 68; RESP 16; TEMP 36.4; O2SAT 100
[2024-03-15] MEDS: Nicotine 21 MG PATCH.TD24 TRANSDERMA (08:51)
[2024-03-15] MEDS: methADONE HCl 20 MG/2 ML ORAL.CONC 90 MG PO (08:51)
[2024-03-15] MEDS: ALPRAZolam 0.5 MG TABLET PO (08:53)
[2024-03-15] MEDS: Gabapentin 300 MG CAPSULE PO (08:53)
[2024-03-15] MEDS: Dextroamphetamine/Amphetamine XR 10 MG CAP.ER.24H 30 MG PO (08:53)
[2024-03-15] MEDS: risperiDONE 0.5 MG TABLET PO (10:25)
[2024-03-15] MEDS: Nicotine Polacrilex 2 MG GUM 4 MG BUCCAL (10:26)
--- NOTE | 2024-03-15 10:47 | PM.PSYDC ---
DS: Providers Provider Date of Service: 03/15/24 Date of admission: 03/09/24 18:22 Date of discharge: 03/15/24 Primary care physician: Unknown Physician Admitting clinician: Amanda Guallpa Attending physician on admission: Amanda Guallpa Consults: 03/09/24 21:14 Consult to Hospitalist Routine Comment: Consulting Provider: Hospitalist Reason For Exam: adm physical opiate use dx 03/11/24 09:48 Addiction Medicine Routine Consulting Provider: Addiction Covering Reason for consultation: opiate use disorder- pt request, ?methadone vs suboxone Has provider been notified: No Attending physician on discharge: Yifan Mullins Discharging clinician: Betsy Ace DS: Diagnosis Discharge Diagnosis (1) Mood disorder: Status: Acute (2) ADHD: Status: Acute (3) Alcohol abuse: Status: Acute (4) Crack cocaine use: Status: Acute (5) Opiate abuse, continuous: Status: Acute DS: Medications Discharge Medications Home Medications: Home Medications ?Medication ?Instructions ?Recorded ?Confirmed alprazolam 1 mg tablet PO 2XD 03/09/24 dextroamphetamine-amphetamine 30 1 tab PO BID 03/09/24 03/09/24 mg tablet fluoxetine 20 mg capsule 20 mg PO DAILY 03/09/24 03/09/24 methadone 10 mg/mL oral 90 mg PO DAILY 03/10/24 03/10/24 concentrate (Methadose) Previous Rx's ?Medication ?Instructions ?Recorded albuterol sulfate 90 mcg/actuation 2 puff inhalation RQ4H PRN wheeze 03/14/24 aerosol inhaler (Ventolin HFA) #1 inhaler clonidine HCl 0.1 mg tablet 0.1 mg PO TID PRN 03/14/24 Anxiety/Restlessness #45 tabs fluticasone propionate 50 1 spray intranasal BID PRN 03/14/24 mcg/actuation nasal wheezing #1 inhaler spray,suspension gabapentin 300 mg capsule 300 mg PO TID #45 caps 03/14/24 hydroxyzine HCl 25 mg tablet 25 mg PO Q6H PRN Anxiety #30 tabs 03/14/24 mirtazapine 15 mg tablet 15 mg PO BEDTIME #30 tabs 03/14/24 nicotine (polacrilex) 2 mg gum 4 mg buccal Q2H PRN Nicotine 03/14/24 Cravings #60 ea nicotine 21 mg/24 hr daily 21 mg transdermal DAILY #30 ea 03/14/24 transdermal patch risperidone 0.5 mg tablet 0.5 mg PO Q4H PRN Psychosis #30 03/14/24 tabs sulfamethoxazole 800 1 tab PO Q12H #8 tabs 03/14/24 mg-trimethoprim 160 mg tablet trazodone 50 mg tablet 50 mg PO BEDTIME MRX1 PRN Insomnia 03/14/24 #30 tabs Mental Status Exam Mental Status Exam Patient Appearance: Appropriate Patient Orientation: Person, Place, Time and Situation Level of Consciousness: Alert Patient Behavior: Appropriate, Talkative, Cooperative and Good Eye Contact Mood Description: Appropriate and Expansive Affect Description: Appropriate Patient Cognition Impaired: No Ability to Follow Directions: Good Speech Pattern: Spontaneous Speech Memory Description: Intact Hallucinations: None Delusions: Not Present Thought Process: Goal Oriented Thought Content: positive for Goal Oriented Abnormal Motor Activity Signs and Symptoms: Restlessness Judgement: Good Data Data Completed and Pending Completed studies during hospitalization [Text1]: 03/11/24 03/14/24 07:58 07:25 Hep Bs Antigen Negative Hep Bs Antibody GRAYZONE Hep B Core Total Ab Nonreactive Hepatitis C Ab (EIA) Reactive H Hep C Viral Load Pending Hep C Viral Load Log Pending HIV 1&2 Ab/P24 Ag 4thGn Nonreactive 03/13/24 13:35 Urine clean catch - Urine patterson top Urine Culture - Final Escherichia coli 03/10/24 22:32 Urine clean catch - Urine patterson top Urine Culture - Final DS: Summary Hospital Course Hospital Course: Admission to adult psychiatry for exacerbation of mood disorder, ADHD, polysubstance use disorder-opiate, crack, alcohol. Pt reporting relapse on heroin prior to admission with some sx of paranoia. Once admitted, pt signed a three day notice of intent. Medications were evaluated and adjusted. Milieu therapy was offered to pt during admission. Pt will return to [facility] for out patient psychiatric services. Status at Discharge Functional status at discharge: independent ambulation Overall status at discharge: patient is progressing back to baseline Time Spent with Patient Time attestation: Total time managing care of this patient today ____ minutes. Time spent: Less than 30 minutes Discharge Plan Discharge Anticipated Discharge Date/Time: 03/15/24 12:00 Patient Disposition: Home, Self-Care Discharge Diagnosis: Mood Disorder ADHD Opiate, Crack-Cocaine, Alcohol Use Disorder Referrals: Clinical and Support Options Intake w Michelle Caputo [Other] - 03/18/24 4:00 pm [facility] [Other] - 03/16/24 7:00 am Ethan Lugo MD [Physician] - 04/29/24 3:30 pm (in office) Discharge Medications: New clonidine HCl 0.1 mg Tablet 0.1 mg PO TID PRN (Reason: Anxiety/Restlessness) Qty: 45 1RF Protocol: Hold for SBP< HOLD for SBP < : 90 trazodone 50 mg Tablet 50 mg PO BEDTIME MRX1 PRN (Reason: Insomnia) Qty: 30 1RF nicotine (polacrilex) 2 mg Gum 4 mg buccal Q2H PRN (Reason: Nicotine Cravings) Qty: 60 0RF sulfamethoxazole-trimethoprim 800-160 mg Tablet 1 tab PO Q12H Qty: 8 0RF nicotine 21 mg/24 hr Patch 24 Hour 21 mg transdermal DAILY Qty: 30 0RF gabapentin 300 mg Capsule 300 mg PO TID Qty: 45 1RF hydroxyzine HCl 25 mg Tablet 25 mg PO Q6H PRN (Reason: Anxiety) Qty: 30 1RF albuterol sulfate [Ventolin HFA] 90 mcg/actuation Hfa Aerosol Inhaler 2 puff inhalation RQ4H PRN (Reason: wheeze) Qty: 1 0RF fluticasone propionate 50 mcg/actuation [place],Suspension 1 spray intranasal BID PRN (Reason: wheezing) Qty: 1 0RF risperidone 0.5 mg Tablet 0.5 mg PO Q4H PRN (Reason: Psychosis) Qty: 30 1RF Continued alprazolam 1 mg tablet PO 2XD dextroamphetamine-amphetamine 30 mg tablet 1 tab PO BID fluoxetine 20 mg capsule 20 mg PO DAILY methadone [Methadose] 10 mg/mL Concentrate 90 mg PO DAILY mirtazapine 15 mg tablet 15 mg PO BEDTIME Qty: 30 0RF Discharge Orders: Discharge Order (Routine); Ordered 03/15/24 Ordered By: Betsy Ace Diet: Regular diet Activity on Discharge: As tolerated Stand Alone Forms: Patient Portal Discharge page, Community Support Print Language: [place] Care Plan Goals: Mood and Behavioral Stabilization Sobriety Health Concerns: Mood and Behavioral Stabilization Sobriety Plan of Treatment: Attend scheduled appointments Take medications as directed Assessment: Pt discharges on a three day notice of intent. Pt interviewed prior to discharge and found to be fully oriented and without SI/HI. Pt has insight and demonstrates good judgment in terms of wanting to pursue treatment. Pt is not in imminent risk of harm to self or others and has a safety plan that includes presenting to the closest ER or calling 911 if feeling unsafe. Pt has been observed closely by nursing and unit staff throughout admission. Pt has not engaged in any behaviors that suggest dangerousness to self or others and has demonstrated appropriate behaviors and impulse control. Discharge Date/Time: 03/15/24 11:40
[2024-03-18 14:58] LABS: HCV Log PCR 6.73 Log IU/mL (NOT DETECTED)
== END 2024-03-15 11:40 | disposition home or self-care (01) | DRG 753 ==
PROVIDERS: Physician Assistant; Admitting Provider Psychiatry & Neurology Psychiatry; Visit Provider Clinical Nurse Specialist Psychiatric/Mental Health, Adult
DX: F39 Unspecified mood [affective] disorder (principal); F10.10 Alcohol abuse, uncomplicated; F90.9 Attention-deficit hyperactivity disorder, unspecified type; F11.20 Opioid dependence, uncomplicated; F14.90 Cocaine use, unspecified, uncomplicated; F17.210 Nicotine dependence, cigarettes, uncomplicated; Z71.6 Tobacco abuse counseling; Z79.899 Other long term (current) drug therapy
CPT/HCPCS: 36415; 86704; 86706; 86803; 87086; 87088; 87186; 87340; 87389; 87522

== ENCOUNTER → 2024-03-09 18:22 | Outpatient (BNV) | payer OTHER, SELFPAY | PROVIDERS: Admitting Provider Psychiatry & Neurology Psychiatry; Visit Provider Physician Assistant | DX: Z02.2 Encounter for examination for admission to residential institution (principal) | CPT/HCPCS: 99429 ==

== ENCOUNTER → 2024-03-09 18:22 | Outpatient (BNV) | payer OTHER, SELFPAY | PROVIDERS: Admitting Provider Psychiatry & Neurology Psychiatry; Visit Provider Clinical Nurse Specialist Psychiatric/Mental Health, Adult | DX: F39 Unspecified mood [affective] disorder (principal); F90.9 Attention-deficit hyperactivity disorder, unspecified type; F10.10 Alcohol abuse, uncomplicated; F14.90 Cocaine use, unspecified, uncomplicated; F11.10 Opioid abuse, uncomplicated | CPT/HCPCS: 99231; 99232; 99238; 99499 ==

== ENCOUNTER 2025-02-16 21:14 | Emergency (ER) | payer OTHER, SELFPAY ==
--- NOTE | 2025-02-16 | ECG_ITS ---
Test Reason : tachycardia Blood Pressure : */* mmHG Vent. Rate : 105 BPM Atrial Rate : 105 BPM P-R Int : 132 ms QRS Dur : 76 ms QT Int : 352 ms P-R-T Axes : 50 1 16 degrees QTcB Int : 465 ms Sinus tachycardia Otherwise normal ECG No previous ECGs available Referred By: Generic ED Physician Electronically Signed By: ROXANNE LIRIANO
[2025-02-16 21:25] VITALS: BP 102/83; PULSE 119; RESP 18; TEMP 36.7; O2SAT 96; BMI 21.3
--- NOTE | 2025-02-16 22:06 | MHC.EDTECH ---
this tech assisted pt to change to hospital [facility], pt acting suspicios, pulled something out of her bra and was hiding it in her jacket, RN notified
[2025-02-16 22:11] LABS: MANUAL DIFF FLAG NO
[2025-02-16 22:21] LABS: Basophils Absolute Auto 0.1 X10*3/uL (0.0-0.2); Basophils Percent Auto 0.6 % (0-2); Eosinophils Absolute Auto 0.4 X10*3/uL (0.0-0.4); Eosinophils Percent Auto 4.8 % (0-4); Hematocrit 26.2 % (37.0-47.0); Imm Gran Abs Auto 0.07 X10*3/uL (0.00-0.03); Imm Gran Pct Auto 0.9 % (0.0-0.4); Lymphocytes Absolute Auto 2.1 X10*3/uL (1.2-4.9); Lymphocytes Percent Auto 26.7 % (20-40); Mean Corpuscular HGB Conc 30.5 g/dl (31.0-35.0); Mean Corpuscular Hemoglobin 26.1 pg (27.0-33.0); Mean Corpuscular Volume 85.3 fL (80.0-98.0); Mean Platelet Volume 8.4 fL (9.4-12.3); Monocytes Absolute Auto 0.6 X10*3/uL (0.1-1.2); Monocytes Percent Auto 7.2 % (2-11); Neutrophils Absolute Auto 4.8 x10*3/uL (2.0-8.3); Neutrophils Percent Auto 59.8 % (45-73); Platelet Count 528 X10*3/uL (160-400); Red Blood Count 3.07 X10*6/uL (4.20-5.50)
[2025-02-16 22:33] LABS: Alanine Aminotransferase 23 U/L (0-31); Albumin Level 3.5 g/dL (3.5-5.0); Alkaline Phosphatase 69 U/L (39-117); Anion Gap 15 (12-20); Aspartate Amino Transferase 40 U/L (5-31); Bilirubin Total 0.2 mg/dL (0.0-1.0); Blood Urea Nitrogen 17 mg/dL (9-16); Calcium 9.6 mg/dL (8.4-10.2); Carbon Dioxide 32 mmol/L (22-29); Chloride 96 mmol/L (96-108); Creatinine Clr Calc Pharmacy 85.1; Estimated Glomerular Filt Rate > 60; Glucose Random 91 mg/dL (60-115); Potassium 3.7 mmol/L (3.3-5.1); Sodium 139 mmol/L (135-145); Total Protein 8.2 g/dL (6.5-8.0)
--- NOTE | 2025-02-16 22:43 | ED.GENADULT ---
HPI - General Adult General Chief complaint: General Medical Stated complaint: endocarditis-was treated @[facility] but left Time Seen by Provider: 02/16/25 21:46 Source: patient, RN notes reviewed and old records reviewed Mode of arrival: ambulatory Limitations: no limitations History of Present Illness ED Provider: Bertrand HPI narrative: 34-year-old female with a past medical history significant for polysubstance abuse, mood disorder presenting for evaluation of chest pain and shortness of breath. Patient reports that she was admitted to [facility] from 02/02/2025 through 02/14/2025 before she left against medical advice she reports that she was diagnosed with endocarditis and septic emboli. She reports since leaving she has had increased chest pain and shortness of breath. Security reportedly found substances suspicious for crack cocaine on her arrival to the ED today. The patient reports that she was feeling very anxious and does not want to be here anymore. Related Data Home Medications ?Medication ?Instructions ?Recorded ?Confirmed alprazolam 1 mg tablet PO 2XD 03/09/24 dextroamphetamine-amphetamine 30 1 tab PO BID 03/09/24 03/09/24 mg tablet fluoxetine 20 mg capsule 20 mg PO DAILY 03/09/24 03/09/24 methadone 10 mg/mL oral 90 mg PO DAILY 03/10/24 03/10/24 concentrate (Methadose) Previous Rx's ?Medication ?Instructions ?Recorded albuterol sulfate 90 mcg/actuation 2 puff inhalation RQ4H PRN wheeze 03/14/24 aerosol inhaler (Ventolin HFA) #1 inhaler clonidine HCl 0.1 mg tablet 0.1 mg PO TID PRN 03/14/24 Anxiety/Restlessness #45 tabs fluticasone propionate 50 1 spray intranasal BID PRN 03/14/24 mcg/actuation nasal wheezing #1 inhaler spray,suspension gabapentin 300 mg capsule 300 mg PO TID #45 caps 03/14/24 hydroxyzine HCl 25 mg tablet 25 mg PO Q6H PRN Anxiety #30 tabs 03/14/24 mirtazapine 15 mg tablet 15 mg PO BEDTIME #30 tabs 03/14/24 nicotine (polacrilex) 2 mg gum 4 mg buccal Q2H PRN Nicotine 03/14/24 Cravings #60 ea nicotine 21 mg/24 hr daily 21 mg transdermal DAILY #30 ea 03/14/24 transdermal patch risperidone 0.5 mg tablet 0.5 mg PO Q4H PRN Psychosis #30 03/14/24 tabs sulfamethoxazole 800 1 tab PO Q12H #8 tabs 03/14/24 mg-trimethoprim 160 mg tablet trazodone 50 mg tablet 50 mg PO BEDTIME MRX1 PRN Insomnia 03/14/24 #30 tabs Allergies Allergy/AdvReac Type Severity Reaction Status Date / Time environmental allergies AdvReac Intermediate Cough Verified 02/16/25 21:36 Review of Systems Constitutional: Constitutional: Reports body ache(s), Reports chills, Reports fatigue, Reports fever(s) and Reports weakness ENT: Denies dysphagia, Denies vertigo and Denies dizziness Cardiovascular: Cardiovascular: Reports chest pain and Reports dyspnea Respiratory: Respiratory: Reports cough and Reports dyspnea Gastrointestinal: Gastrointestinal: Denies abdominal pain, Denies dysphagia, Denies nausea and Denies vomiting Musculoskeletal: Musculoskeletal: Denies back pain Integumentary/Breasts: Skin/Breast: Denies rash Neurologic: Denies vertigo, Denies dizziness and Reports weakness Psychiatric: Psychiatric: Reports anxiety, Denies depression, Reports panic attacks, Denies homicidal ideation and Denies suicidal ideation Endocrine: Endocrine: Reports fatigue PMFSH Past Medical History Medical History (Updated 02/16/25 @ 22:45 by Po Thurston) ADHD Mood disorder Alcohol abuse Crack cocaine use Intravenous drug abuse Alcohol use disorder Opiate abuse, continuous Social History Social History Household Members: Significant Other and Unknown / Unable to assess Housing: Homeless Do you presently have visiting nurse or other home services: No Patient Tobacco Use Status: Current everyday Tobacco user Tobacco use type: Cigarette Cigarette Packs Per Day: 1 Cigarettes Per Day: 20.0 e-Cigarette/Vaping Use: Never Used Second Hand Smoke Exposure: Yes Substance Use Type: Crack/Cocaine, Marijuana and Other Advance Directives: No Advance Directives Information Provided: Yes service: No Sexual orientation: Straight/Heterosexual Physical Exam ED Vital Signs: Vital Signs - 24 hr 02/16/25 21:25 Temperature 98.1 F Pulse Rate 119 H Respiratory Rate 18 Blood Pressure 102/83 Pulse Oximetry 96 Oxygen Delivery Method Room Air BMI result Body Mass Index 21.3 Const Other: Somewhat disheveled-appearing General: no acute distress, alert and awake Nutritional Appearance: well nourished and thin Orientation/consciousness: patient oriented x3 HENOR Head: Yes normocephalic and Yes atraumatic Eyes Eyelids: Yes eyelids normal Conjunctivae: conjunctivae normal Sclerae: sclerae normal Corneas: corneas normal Pupils: Equal, round and reactive pupils present EOM: EOMs intact bilaterally Neck Neck: Yes full ROM Resp Effort & Inspection: normal respiratory effort, able to speak in complete sentences, no audible wheezes and not labored Auscultation: clear to auscultation bilaterally Cardio Rate: tachycardic Rhythm: regular rhythm GI Inspection: No distended Palpation (GI): Soft to palpation, not firm, nontender, no guarding and not rigid Skin General skin exam: elasticity normal Neuro General: patient oriented x3 Cranial nerves: Yes CN's II-XII intact bilaterally, Yes Equal, round and reactive pupils present and Yes Bilaterally intact EOM present Cognition (Neuro): normal cognition Extrem Other: Moving all extremities well without any obvious deformities Medical Decision Making Medical Decision Making MDM Narrative: 34-year-old female presents for evaluation of reported fevers, cough, chest pain, shortness of breath. She states that she was recently admitted for endocarditis and septic emboli to [facility]. We attempted to get records but I have been unable to view them thus far. She was afebrile on arrival to the ED but is tachycardic to 119. She was normotensive, oxygen saturation is 96% and her respiratory rate is 18. I was able to do a physical examination and the patient is allowed for labs to be drawn with the significant for a fairly significant anemia with a hemoglobin of 8.0 and hematocrit 26.2, I am not sure what her baseline labs are as she has been had labs this facility in the past. She does not have a leukocytosis. chemistries significant for a carbon dioxide level of 32 which could be related to hypoventilation due to substance abuse specifically opiates. Otherwise no significant lab findings. Given the patient's anemia, weakness and reported recent admission for endocarditis I strongly advised the patient to remain in the hospital for further evaluation, management and likely admission for IV antibiotics. The patient ultimately elected to leave against medical advice despite numerous attempts to have her remain in the hospital. She alert and oriented at the time of leaving against medical advice Differential Diagnosis Differential Diagnoses: The differential diagnosis associated with the presentation includes polysubstance abuse Endocarditis Septic emboli Pneumonia Admission/Observation Consideration of admission/observation: Escalation of care including admission/observation considered Lab Data MDM Lab Attestation statement: I reviewed the patient's lab results. as above 02/16/25 22:05 02/16/25 22:05 Labs: Lab Results 02/16/25 Range/Units 22:05 WBC 8.0 (4.8-10.8) X10*3/uL RBC 3.07 L (4.20-5.50) X10*6/uL Hgb 8.0 L (12.0-16.0) g/dl Hct 26.2 L (37.0-47.0) % MCV 85.3 (80.0-98.0) fL MCH 26.1 L (27.0-33.0) pg MCHC 30.5 L (31.0-35.0) g/dl RDW 16.0 (11.0-16.0) % Plt Count 528 H (160-400) X10*3/uL MPV 8.4 L (9.4-12.3) fL Immature Gran % (Auto) 0.9 H (0.0-0.4) % Neut % (Auto) 59.8 (45-73) % Lymph % (Auto) 26.7 (20-40) % [place] % (Auto) 7.2 (2-11) % Eos % (Auto) 4.8 H (0-4) % Baso % (Auto) 0.6 (0-2) % Lymph # (Auto) 2.1 (1.2-4.9) X10*3/uL [place] # (Auto) 0.6 (0.1-1.2) X10*3/uL Eos # (Auto) 0.4 (0.0-0.4) X10*3/uL Baso # (Auto) 0.1 (0.0-0.2) X10*3/uL Abs Immat Gran (auto) 0.07 H (0.00-0.03) X10*3/uL Absolute Neuts (auto) 4.8 (2.0-8.3) x10*3/uL Absolute Nucleated RBC 0.000 (0.0-0.012) X10*3/uL Nucleated RBC % (auto) 0.0 (0.0-0.2) /100WBC Sodium 139 (135-145) mmol/L Potassium 3.7 (3.3-5.1) mmol/L Chloride 96 (96-108) mmol/L Carbon Dioxide 32 H (22-29) mmol/L Anion Gap 15 (12-20) BUN 17 H (9-16) mg/dL Creatinine 0.77 (0.5-1.4) mg/dL Estim Creat Clear Calc 85.1 Estimated GFR > 60 Random Glucose 91 (60-115) mg/dL Lactic Acid 1.0 (0.5-2.0) mmol/L Calcium 9.6 (8.4-10.2) mg/dL Total Bilirubin 0.2 (0.0-1.0) mg/dL AST 40 H (5-31) U/L ALT 23 (0-31) U/L Alkaline Phosphatase 69 (39-117) U/L Total Protein 8.2 H (6.5-8.0) g/dL Albumin 3.5 (3.5-5.0) g/dL Discharge Plan Discharge Clinical Impression: Chest pain, Substance abuse Patient Disposition: Left Against Medical Advice Prescriptions: No Action alprazolam 1 mg tablet PO 2XD dextroamphetamine-amphetamine 30 mg tablet 1 tab PO BID fluoxetine 20 mg capsule 20 mg PO DAILY methadone [Methadose] 10 mg/mL Concentrate 90 mg PO DAILY clonidine HCl 0.1 mg Tablet 0.1 mg PO TID PRN (Reason: Anxiety/Restlessness) Qty: 45 1RF Protocol: Hold for SBP< HOLD for SBP < : 90 trazodone 50 mg Tablet 50 mg PO BEDTIME MRX1 PRN (Reason: Insomnia) Qty: 30 1RF nicotine (polacrilex) 2 mg Gum 4 mg buccal Q2H PRN (Reason: Nicotine Cravings) Qty: 60 0RF sulfamethoxazole-trimethoprim 800-160 mg Tablet 1 tab PO Q12H Qty: 8 0RF nicotine 21 mg/24 hr Patch 24 Hour 21 mg transdermal DAILY Qty: 30 0RF gabapentin 300 mg Capsule 300 mg PO TID Qty: 45 1RF hydroxyzine HCl 25 mg Tablet 25 mg PO Q6H PRN (Reason: Anxiety) Qty: 30 1RF albuterol sulfate [Ventolin HFA] 90 mcg/actuation Hfa Aerosol Inhaler 2 puff inhalation RQ4H PRN (Reason: wheeze) Qty: 1 0RF fluticasone propionate 50 mcg/actuation [place],Suspension 1 spray intranasal BID PRN (Reason: wheezing) Qty: 1 0RF risperidone 0.5 mg Tablet 0.5 mg PO Q4H PRN (Reason: Psychosis) Qty: 30 1RF mirtazapine 15 mg tablet 15 mg PO BEDTIME Qty: 30 0RF Stand Alone Forms: Against Medical Advice Print Language: N[place]
[2025-02-16 23:30] VITALS: BP 0/0; PULSE 0; RESP 0; TEMP -17.7; TEMP 0; O2SAT 0
== END 2025-02-16 22:45 | disposition left against medical advice (07) ==
PROVIDERS: Emergency Provider Internal Medicine
DX: R07.9 Chest pain, unspecified (principal); F19.10 Other psychoactive substance abuse, uncomplicated; R00.0 Tachycardia, unspecified; R06.02 Shortness of breath
CPT/HCPCS: 36415; 80053; 83605; 85025; 87040; 93005; 99283

== ENCOUNTER → 2025-02-16 21:52 | Outpatient (BNV) | payer OTHER, SELFPAY | PROVIDERS: Emergency Provider Internal Medicine; Visit Provider Internal Medicine | DX: R00.0 Tachycardia, unspecified (principal) | CPT/HCPCS: 93010 ==